=== PATIENT | male | born 1960 | race Caucasian/White ===

== ENCOUNTER 2016-12-14 07:27 | Day surgery (SDC) | payer OTHER ==
[~2016-12-14] VITALS: Ht 182.9 cm; Wt 97.0 kg
[~2016-12-14 07:27] MED LIST: ASPI-973 PO; LABE100T4 PO; LIP40 PO; LISI-567 PO; PANT40TA3 PO
[2016-12-14] MEDS ORDERED: 0.9% Sodium Chloride 1,000 ML IV PRN (07:50)
[2016-12-14] MEDS ORDERED: Sodium Chloride LOK Flush 10 mL Syringe IV PRN (07:50)
[2016-12-14] MEDS ORDERED: fentaNYL-PF 50 mCg/mL 2 mL Inj IVPUSH PRN (07:50)
[2016-12-14 08:05] VITALS: BP 112/64; PULSE 65; RESP 14; O2SAT 97
[2016-12-14 09:20] VITALS: BP 110/62; PULSE 64; RESP 14; O2SAT 98
--- NOTE | 2016-12-14 09:21 | PCM.ENDCOL ---
Colonoscopy Date of Service: Dec 14, 2016 Physician Desmond Edwards MD Indication for Procedure family history of colon cancer Post Procedure Dx & Findings: polyps Procedure Colonoscopy prep adequate withdrawal 17 min PROCEDURE IN DETAIL: After unremarkable rectal examination as the colonoscope was inserted patient's anal canal and advanced the cecum. Landmarks identified including the ileocecal valve and appendiceal orifice. Scope was withdrawn systematically. In the transverse colon there was a 1 mm polyp which was resected completely using cold forceps. In the descending colon there was a 3 mm polyp which was resected completely using cold snare. In the rectum retroflexion was done which showed hemorrhoids anal canal was inspected carefully the way out. Mild hemorrhoids noted. The mucosa of the cecum, ascending, transverse, descending, sigmoid, rectal mucosa lined with whitish, pink, smooth, glistening, normal-appearing mucosa, normal fine branching, underlying vascularity, normal haustra. The patient tolerated procedure and was transported to observation area. Impression Polyp 2 status post complete removal Family history of colon cancer Hemorrhoids Recommendation Repeat colonoscopy 5 years Presedation Assessment Risks and Benefits Informed consent was obtained from the patient after all risks and benefits including but not limited to drug reaction, infection, pain, bleeding, perforation, as well as alternatives were discussed. Patient monitoring Continuous pulse oximetry, cardiac monitoring, blood pressure monitoring, IV access, and oxygen at 2L per nasal cannula. Periprocedural Fentanyl: Fentanyl 50mcg Incrementally Midazolam: Midazolam 3mg Incrementally Complications There were no periprocedural complications identified. Post Procedure Plan Post Procedure Recommendations 1. Restrict activities today. 2. Resume normal activities in the morning. 3. Resume medications. 4. Patient informed of normal post procedure side effects as bloating, drowsiness, blood streaking in the stool. 5. average risk CRCS. If colon polyps come back as: -Hyperplastic- can repeat colonoscopy in 10 years -Tubular adenoma- repeat colonoscopy in 5 years -Tubulovillous/villous adenoma- repeat colonoscopy in 3 years -If any dysplasia- return to clinic as soon as possible 6. Please don't hesitate to call me with any questions. Desmond Edwards MD Dec 14, 2016 09:21
[2016-12-14 09:29] VITALS: BP 102/63; PULSE 65; RESP 14; O2SAT 98
[2016-12-14 09:35] VITALS: BP 117/64; PULSE 65; RESP 14; O2SAT 98
--- NOTE | 2016-12-15 13:29 | PATH ---
SURGICAL PATHOLOGY Attending Physician:Desmond Edwards M.D. CASE STATUS: Signed Out PATIENT NAME: AMBER SWANN PID: [id number] : 1960 DATE COLLECTED:12/14/2016 00:00 SPECIMEN: 1: Colon, Biopsy 2: Colon, Biopsy CLINICAL HISTORY: FAM HX COLON CA COLON POLYPS 1). TRANSVERSE COLON POLYP 2). DESCENDING COLON POLYP FINAL DIAGNOSIS: 1.TRANSVERSE COLON POLYP: TUBULAR ADENOMA. 2.DESCENDING COLON POLYP: POLYPOID-SHAPED FRAGMENT OF COLON MUCOSA CONSISTENT WITH MUCOSAL POLYPOID REDUNDANCY. NEGATIVE FOR DYSPLASIA AND MALIGNANCY. ICD10 CODE D12.3 GROSS DESCRIPTION: The specimen is received in two formalin filled containers labeled with the patient's name. 1). The specimen is sublabeled "transverse colon polyps" and consists of a 0.2 x 0.2 x 0.2 CM portion of tissue which is entirely submitted in cassette 1A. 2). The specimen is sublabeled "descending colon polyp" and consists of a 0.5 x 0.4 x 0.1 CM portion of tissue which is entirely submitted in cassettes 2A. 12/15/2016 [facility] MICRO DESCRIPTION: See diagnosis. ICD-9 CODES: CPT CODES: 1: 02837 2: 40396 Electronically Signed Out Khanh Rm MD [facility] [address], [place] [address] Technical component performed at [facility], [address] [place] [address] Ave[address], [place], [address]
== END 2016-12-14 23:59 | disposition home or self-care (01) ==
LOC: END 07:27
PROVIDERS: ATTEND Internal Medicine
DX: Z12.11 Encounter for screening for malignant neoplasm of colon (principal); D12.3 Benign neoplasm of transverse colon; D12.4 Benign neoplasm of descending colon; K64.8 Other hemorrhoids; I10 Essential (primary) hypertension; Z80.0 Family history of malignant neoplasm of digestive organs; Z79.82 Long term (current) use of aspirin; Z79.899 Other long term (current) drug therapy

== ENCOUNTER 2017-05-06 00:28 | Day surgery (SDC) | payer OTHER ==
[2017-05-06] VITALS (13 sets, daily range): BP systolic 114–135; BP diastolic 58–75; PULSE 59–67; RESP 14–17; O2SAT 94–98
[~2017-05-06] VITALS: Ht 182.9 cm; Wt 93.0 kg
[~2017-05-06 00:28] MED LIST changes: +AMLO2.5T PO; -ASPI-973 PO; +BUPR150T12 PO; -LABE100T4 PO; -PANT40TA3 PO
[2017-05-06 11:36] LABS: BASOPHILS % (AUTO) 0.3 % (0-3); EOSINOPHILS % (AUTO) 1.9 % (0-5); MONOCYTES % (AUTO) 9.1 % (4-12); Mean Corpuscular Hemoglobin 29.6 pg (27.0-35.0); Mean Corpuscular Volume 84.6 fL (81-100); NEUTROPHILS % (AUTO) 65.2 % (40-74); Platelet Count 180 bil/L (150-400)
[2017-05-06] MEDS ORDERED: Heparin 1,000 Units/500 mL NS Premix IV ONE (13:57)
[2017-05-06] MEDS ORDERED: Heparin 10,000 Unit/1,000 mL NS Premix IV ONE (13:57)
[2017-05-06] MEDS ORDERED: Nitroglycerin 50,000 mcg/250 mL D5W Premix IV ONE (13:57)
[2017-05-06] MEDS ORDERED: fentaNYL-PF 50 mCg/mL 2 mL Inj ONE (14:07)
[2017-05-06] MEDS ORDERED: Heparin 1,000 Unit/mL 10 mL Inj ONE (14:22)
--- NOTE | 2017-05-06 15:46 | CS94 ---
[address] [address] DIAGNOSTIC CARDIAC CATHETERIZATION PATIENT: AMBER SWANN : 1960 MR#: [id number] ADMIT: 05/06/2017 JOB ID: [id number] SERVICE DATE: 05/06/2017 PROCEDURE: 1. Selective coronary angiography. 2. Left heart catheterization. INDICATION: Abnormal stress echo. PROCEDURAL DETAILS: The procedure was done via right femoral approach using a 5-[place]gian system. 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 He has had it repaired. His CT scan was reviewed and his dissection extends into the great vessels. Hence we decided to do the procedure through the leg. 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 ANGIOGRAPHIC FINDINGS: 1. Left main: No significant disease. 2. LAD: Large caliber vessel free of any significant disease. 3. Circumflex: Large dominant vessel free of any significant disease. 4. Right coronary artery could not be selectively cannulated. A brief attempt was made and the procedure was abandoned after the catheter got kinked. This would have necessitated a long sheath going through the iliacs and further manipulation. I wanted to avoid all that. His right coronary artery is a small dominant vessel, and even if it is diseased, the treatment for that would be medical therapy. Given the fact that his other arteries are pristine and of large caliber, I doubt he has any significant right coronary artery disease either. 5. Left heart catheterization revealed an LVEDP of 12. There was no gradient upon pullback. In summary, I believe his stress test is false positive. Continue with risk factor modification.
[2017-05-06] MEDS ORDERED: ASPI-973 PO (17:17)
--- NOTE | 2017-05-06 18:30 | NUR ---
DOMINGO DISCHARGE ASSUMED CARE OF PT AT 1530. RIGHT GROIN HAS REMAINED SOFT, NON TENDER, NO BLEEDING OR HEMATOMA NOTED. PT IS TAKING PO FLUIDS AND MEAL WITHOUT DIFFICULTY. HE COMPLETED BEDREST TIME AND AMBULATED IN [place] AND USED THE BATHROOM. RIGHT GROIN REMAINED STABLE AFTER AMBULATION. DISCHARGE INSTRUCTIONS INCLUDING F/U, MEDICATIONS, POST SEDATION AND HEART CATH INSTRUCTIONS WERE REVIEWED AND PT VERBALIZED UNDERSTANDING. HE WAS DISCHARGED AT 1830 WITH FAMILY IN STABLE CONDITION.
== END 2017-05-06 23:59 | disposition home or self-care (01) ==
LOC: SOUO 00:28 → EDSTATUS 09:00 → SOUO 23:59
PROVIDERS: ATTEND Internal Medicine Cardiovascular Disease
DX: R94.39 Abnormal result of other cardiovascular function study (principal); Z86.79 Personal history of other diseases of the circulatory system; Z98.890 Other specified postprocedural states; I10 Essential (primary) hypertension; E78.2 Mixed hyperlipidemia; Z79.82 Long term (current) use of aspirin
CPT/HCPCS: 36415; 80048; 85025; 93005; 93458; 99152; C1769; J1200; J1644; J2060; J2250; J3010; J7030; Q9967